=== PATIENT | male | born 1980 | race Caucasian/White ===

== ENCOUNTER 2022-06-19 09:05 | Emergency (ER) | payer BC, OTHER ==
[2022-06-19 09:17] VITALS: TEMP 98.3; BMI 35.3
[2022-06-19] MEDS ORDERED: FAMOTIDINE 20 MG/50 ML IVPB 20 MG in PREMIX 50 IVPB ONE (09:59)
[2022-06-19] MEDS ORDERED: MAG HYDROX/AL HYDROX/SIMETH -MYLANTA- ORAL SUSPENSION PO ONE (09:59)
[2022-06-19] MEDS ORDERED: FAMOTIDINE 20 MG/50 ML IVPB 20 MG/50 ML MG IVPB ONE (10:07)
[2022-06-19] MEDS ORDERED: MAG HYDROX/AL HYDROX/SIMETH 30 ML UNIT-DOSE CUP ONE (10:07)
[2022-06-19] MEDS ORDERED: ONDANSETRON 4 MG/2 ML VIAL ONE ×2 (10:30→13:56)
[2022-06-19 10:32] LABS: HEMATOCRIT 45.8 % (35.4-49); HEMOGLOBIN 16.1 G/dL (11.7-16.9); MCH 31.8 pg (25.7-33.7); MCHC 35.2 g/dl (32.0-35.9); MEAN CELL VOLUME 90.4 fl (80-96); MEAN PLT VOLUME 6.8 fl (7.5-11.1); RBC 5.07 10^6/uL (4.00-5.60); RDW 13.5 % (11.9-15.9); WHITE BLOOD COUNT 9.3 10^3/uL (4.0-10.8)
[2022-06-19] MEDS ORDERED: ONDANSETRON 4 MG/2 ML VIAL IVPB ONE ×2 (10:32→13:55)
[2022-06-19 11:11] LABS: PLATELET ESTIMATE ADEQUATE
[2022-06-19 11:44] LABS: ALBUMIN 4.9 g/dl (3.4-5.0); BILIRUBIN,TOTAL 1.1 mg/dl (0.2-1); CALCIUM 10.1 mg/dl (8.5-10); CREATININE 0.8 mg/dl (0.55-1.3); TOT PROT 8.1 g/dl (6.4-8.2)
[2022-06-19] MEDS ORDERED: GLUCAGON 1 MG KIT IVPUSH ONE (13:55)
[2022-06-19] MEDS ORDERED: GLUCAGON 1 MG KIT ONE (13:56)
[2022-06-19 15:00] VITALS: BP 144/96; PULSE 78; RESP 16
== END 2022-06-19 17:35 | disposition home or self-care (01) ==
LOC: FER 09:05 → FASUSAT 15:41 → FM/S 15:43 → FASUSAT 15:43 → FER 17:35
PROC: 3E033GC Introduction of Other Therapeutic Substance into Peripheral Vein, Percutaneous Approach (ICD-10-PCS; principal; 2022-06-19)
PROC: 3E033GC Introduction of Other Therapeutic Substance into Peripheral Vein, Percutaneous Approach (ICD-10-PCS; 2022-06-19)
PROC: 3E033GC Introduction of Other Therapeutic Substance into Peripheral Vein, Percutaneous Approach (ICD-10-PCS; 2022-06-19)
DX: T18.128A Food in esophagus causing other injury, initial encounter (principal)
CPT/HCPCS: 36415; 71250-TC; 80053; 83690; 84484; 85027; 93005; 99285-25; C9803-CS; U0003; U0005

== ENCOUNTER 2023-02-26 07:06 | Observation (INO) | payer BC ==
[2023-02-26] MEDS ORDERED: dilTIAZem HCL 125 MG/25 ML - 25 ML VIAL ONE ×2 (07:39→19:47)
[2023-02-26] MEDS ORDERED: dilTIAZem HCL 50 MG/10 ML - 10 ML VIAL IVPUSH ONE ×3 (07:50→08:57)
[2023-02-26] MEDS ORDERED: SODIUM CHLORIDE 0.9% 500 ML INFUS.BAG IV ONE (07:53)
[2023-02-26] MEDS ORDERED: dilTIAZem HCL 30 MG TABLET PO ONE ×2 (07:56→19:22)
[2023-02-26] MEDS ORDERED: dilTIAZem HCL 30 MG TABLET ONE ×2 (08:00→19:46)
[2023-02-26 08:41] LABS: INR 0.97 (0.83-1.09); PROTHROMBIN TIME (PATIENT) 11.3 SEC (9.7-13.0)
[2023-02-26 08:44] LABS: ACTIVATED PTT 29.5 SECONDS (25.2-36.5)
[2023-02-26 08:56] LABS: BASO % 1.7 % (0-2.0); EOS % 5.5 % (0-4.5); HEMATOCRIT 45.3 % (35.4-49); HEMOGLOBIN 15.4 GM/dL (11.7-16.9); LYMPH % 32.1 % (8-40); MCH 30.5 pg (25.7-33.7); MEAN CELL VOLUME 89.6 fl (80-96); MEAN PLT VOLUME 7.6 fl (7.5-11.1); MONO % 15.3 % (3.8-10.2); NEUT % 45.4 % (42.8-82.8); PLATELET COUNT 295 10^3/uL (134-434); RBC 5.06 M/mm3 (4.00-5.60); RDW 13.3 % (11.9-15.9); WHITE BLOOD COUNT 5.8 K/mm3 (4.0-10.0)
[2023-02-26 08:58] LABS: POTASSIUM 4.2 mmol/L (3.5-5.1)
[2023-02-26 09:00] LABS: CALCIUM 9.3 mg/dL (8.5-10.1)
[2023-02-26 09:01] LABS: ALBUMIN 4.2 g/dl (3.4-5.0); BLOOD UREA NITROGEN 15.3 mg/dL (7-18); MAGNESIUM 1.9 mg/dL (1.8-2.4)
[2023-02-26 09:04] LABS: CREATININE 0.9 mg/dL (0.55-1.3)
[2023-02-26 09:05] LABS: BILIRUBIN,TOTAL 0.6 mg/dL (0.2-1)
[2023-02-26 09:06] LABS: TOT PROT 7.9 g/dl (6.4-8.2)
[2023-02-26] MEDS ORDERED: metoPROLOL SUCCINATE 25 MG TAB.SR.24H (FP) PO ONE ×2 (11:14→11:38)
[2023-02-26] MEDS ORDERED: dilTIAZem HCL 50 MG/10 ML - 10 ML VIAL ONE (19:47)
[2023-02-26] MEDS ORDERED: APIXABAN 5 MG TABLET PO ONE (22:28)
[2023-02-27 00:06] VITALS: BMI 35.2
[2023-02-27 08:07] LABS: EOS % 3.8 % (0-4.5); HEMATOCRIT 46.3 % (35.4-49); HEMOGLOBIN 15.8 GM/dL (11.7-16.9); LYMPH % 24.1 % (8-40); MCH 30.2 pg (25.7-33.7); MCHC 34.1 g/dl (32.0-35.9); MEAN CELL VOLUME 88.6 fl (80-96); MONO % 12.5 % (3.8-10.2); NEUT % 58.6 % (42.8-82.8); PLATELET COUNT 305 10^3/uL (134-434); RBC 5.22 M/mm3 (4.00-5.60); RDW 13.9 % (11.9-15.9); WHITE BLOOD COUNT 8.4 K/mm3 (4.0-10.0)
[2023-02-27 08:44] LABS: MAGNESIUM 2.1 mg/dL (1.8-2.4)
[2023-02-27] MEDS ORDERED: APIXABAN 5 MG TABLET PO SCH (10:00)
[2023-02-27] MEDS ORDERED: metoPROLOL SUCCINATE 25 MG TAB.SR.24H (FP) PO SCH (10:00)
[2023-02-27] MEDS ORDERED: dilTIAZem HCL 30 MG TABLET PO SCH (12:00)
[2023-02-27] MEDS: DRONEDARONE HCL 400 MG TAB (FP) PO SCH ×2 (16:10→21:38)
[2023-02-28 06:40] VITALS: RESP 18
[2023-02-28] MEDS ORDERED: metoPROLOL SUCCINATE 25 MG TAB.SR.24H (FP) PO SCH (06:45)
[2023-02-28 07:50] LABS: POTASSIUM 4.3 mmol/L (3.5-5.1)
[2023-02-28 07:57] LABS: BLOOD UREA NITROGEN 16.9 mg/dL (7-18); CALCIUM 8.9 mg/dL (8.5-10.1); MAGNESIUM 2.1 mg/dL (1.8-2.4)
[2023-02-28 08:00] LABS: PHOSPHOROUS 3.8 mg/dL (2.5-4.9)
[2023-02-28 08:02] LABS: TOT PROT 7.4 g/dl (6.4-8.2)
[2023-02-28 08:25] LABS: HEMATOCRIT 44.8 % (35.4-49); MCH 30.3 pg (25.7-33.7); MCHC 33.5 g/dl (32.0-35.9); MEAN CELL VOLUME 90.2 fl (80-96); MEAN PLT VOLUME 7.2 fl (7.5-11.1); PLATELET COUNT 291 10^3/uL (134-434); RBC 4.96 M/mm3 (4.00-5.60); RDW 13.6 % (11.9-15.9); WHITE BLOOD COUNT 7.3 K/mm3 (4.0-10.0)
[2023-02-28] MEDS: DRONEDARONE HCL 400 MG TAB (FP) PO SCH (09:44)
[2023-02-28] MEDS ORDERED: ASPIRIN 325 MG ENTERIC COATED TABLET (FP) PO SCH (10:00)
[2023-02-28 15:20] VITALS: BP 123/74; PULSE 65; TEMP 98.6
== END 2023-02-28 15:32 | disposition home or self-care (01) ==
LOC: JER 07:06 → JERBED 09:41 → J4W 22:55
PROVIDERS: ADMIT Internal Medicine; ATTEND Internal Medicine
PROC: 3E033GC Introduction of Other Therapeutic Substance into Peripheral Vein, Percutaneous Approach (ICD-10-PCS; principal; 2023-02-26)
PROC: 3E0337Z Introduction of Electrolytic and Water Balance Substance into Peripheral Vein, Percutaneous Approach (ICD-10-PCS; 2023-02-26)
DX: I48.91 Unspecified atrial fibrillation (principal); R00.2 Palpitations; R00.0 Tachycardia, unspecified; F41.9 Anxiety disorder, unspecified; G47.30 Sleep apnea, unspecified; E66.9 Obesity, unspecified
CPT/HCPCS: 0241U-QW; 36415; 71045-TC-FY; 80053; 80061; 82550; 83735; 84100; 84439; 84443; 84484; 85025; 85027; 85610; 85730; 86850; 86900; 86901; 93005; 93010; 93306-TC; 99291; G0378